=== PATIENT | male | born 1935 | race Caucasian/White ===

== ENCOUNTER 2019-11-11 20:04 | Emergency (ER) | payer SELFPAY ==
--- NOTE | 2019-11-11 20:51 | ER ---
Nurse's Notes [facility] Name: Phuong Menjivar Age: 84 yrs Sex: Male : 1935 Arrival Date: 11/11/2019 Time: 20:14 Bed 4 Private MD: Diagnosis: Unspecified cirrhosis of liver;Ascites;Cellulitis and acute lymphangitis of other parts of limb-right upper ext;Altered mental status, unspecified;Encephalopathy, unspecified;Elevated white blood cell count;Bandemia;Unspecified kidney failure;Pleural effusion in conditions classified elsewhere Presentation: 11/11 20:14 Presenting complaint: EMS states: pt was released from [facility] for RUE aa1 cellulitis today and when he returned to his correction unit he was sluggish to respond and still c/o pain \T\ swelling to R arm. Upon arrival to ED pt oriented x 4. Reports RUE pain 8/10. Pt does report hx of liver failure with cirrhosis and currently taking lactulose. Transition of care: [facility]. Onset of symptoms is unknown. Risk Assessment: Do you want to hurt yourself or someone else? Patient reports no desire to harm self or others. Initial Sepsis Screen: Does the patient meet any 2 criteria? Altered Mental Status. Does the patient have a suspected source of infection? Yes: Skin breakdown/wound. Care prior to arrival: IV initiated. 20 GA, in the left antecubital area, hand, Glucose check: 140 Oxygen administered. via nasal cannula. 20:14 Method Of Arrival: EMS: [facility] aa1 20:14 Acuity: JEN 2 aa1 Historical: - Allergies: 20:26 No Known Allergies; aa1 - Home Meds: 20:26 furosemide 40 mg Oral tab 1 tab once daily [Active]; lactulose 10 gram/15 mL Oral soln aa1 30 mL 3 times per day [Active]; spironolactone 25 mg Oral tab 1 tab once daily [Active]; - PMHx: 20:26 Cirrhosis; Hypertension; BPH; Hypothyroidism; liver disease; aa1 - Immunization history:: Last tetanus immunization: unknown. - Coronavirus screen:: The patient has NOT traveled to [place], [place], or [place] in the past 14 days. Proceed with normal triage process as indicated. - Social history:: Smoking status: Patient denies any tobacco usage or history of. - Family history:: not pertinent. - Ebola Screening: : No symptoms or risks identified at this time. Screenin:15 Abuse screen: Denies threats or abuse. Denies injuries from another. Nutritional aa1 screening: No deficits noted. Tuberculosis screening: No symptoms or risk factors identified. Fall Risk IV access (20 points). Assessment: 20:15 General: Appears in no apparent distress. comfortable, Behavior is calm, cooperative, aa1 appropriate for age. Pain: Complains of pain in right arm Pain currently is 8 out of 10 on a pain scale. Quality of pain is described as tender, throbbing, Is continuous, Aggravated by repositioning. Neuro: Level of Consciousness is awake, obeys commands, Oriented to person, place, time, situation, Moves all extremities. Speech is normal, Pupils are PERRLA. Cardiovascular: Heart tones S1 S2 present. Respiratory: Airway is patent Respiratory effort is even, unlabored, Respiratory pattern is regular, symmetrical. GI: Abdomen is noted to have ascites. : No signs and/or symptoms were reported regarding the genitourinary system. EENT: No signs and/or symptoms were reported regarding the EENT system. Derm: Skin is intact, is healthy with good turgor, Skin is pink, warm \T\ dry. redness noted to R arm. Musculoskeletal: Circulation, motion, and sensation intact. Capillary refill is sluggish, in bilateral fingers. Swelling present in right arm. 21:18 Reassessment: Patient appears in no apparent distress at this time. Patient and/or aa1 family updated on plan of care and expected duration. Pain level reassessed. Patient is alert, oriented x 3, equal unlabored respirations, skin warm/dry/pink. Awaiting test results. 21:26 Reassessment: Patient appears in no apparent distress at this time. Patient and/or aa1 family updated on plan of care and expected duration. Pain level reassessed. Patient is alert, oriented x 3, equal unlabored respirations, skin warm/dry/pink. Pt taken to CT at this time. 21:29 Reassessment: Report for transfer given to Elliot Escobar RN. aa1 21:39 Reassessment: Pedro from transfer center called back stating to [facility] will be aa1 here with security crew at approx 0300 to transport pt to [facility]. 11/12 00:32 Reassessment: Patient appears in no apparent distress at this time. Patient and/or rv family updated on plan of care and expected duration. Pain level reassessed. Patient is alert, oriented x 3, equal unlabored respirations, skin warm/dry/pink. awaiting transportation. Vital Signs: 11/11 20:14 BP 118 / 78; Pulse 66; Resp 18; Temp 97.9; Pulse Ox 100% on R/A; Weight 110.22 kg; aa1 Height 6 ft. 0 in. (182.88 cm); Pain 8/10; 21:00 BP 115 / 68; Pulse 63; Resp 18; Temp 97.7; Pulse Ox 100% on R/A; Pain 8/10; aa1 22:00 BP 130 / 78; Pulse 64; Resp 18; Temp 98.0; Pulse Ox 99% on R/A; aa1 23:00 BP 112 / 72; Pulse 61; Resp 16; Pulse Ox 99% on R/A; rv 23:30 BP 108 / 69; Pulse 61; Resp 16; Pulse Ox 99% on R/A; rv 11/12 00:00 BP 133 / 88; Pulse 59; Resp 17; Pulse Ox 99% on R/A; rv 00:30 BP 127 / 76; Pulse 64; Resp 15; Pulse Ox 98% on R/A; rv 01:00 BP 105 / 67; Pulse 61; Resp 17; Pulse Ox 96% on R/A; rv 01:30 BP 126 / 68; Pulse 65; Resp 16; Pulse Ox 97% on R/A; rv 02:00 BP 116 / 70; Pulse 62; Resp 15; Pulse Ox 97% on R/A; rv 02:30 BP 104 / 71; Pulse 68; Resp 16; Pulse Ox 96% on R/A; rv 03:00 BP 112 / 69; Pulse 68; Resp 15; Pulse Ox 96% on R/A; rv 04:15 BP 109 / 67; Pulse 65; Resp 16; Pulse Ox 96% ; rr5 11/11 20:14 Body Mass Index 32.96 (110.22 kg, 182.88 cm) aa1 ED Course: 11/11 20:14 Patient arrived in ED. bb 20:14 Cherelle Suero RN is Primary Nurse. aa1 20:14 Arm band placed on left wrist. aa1 20:15 Patient has correct armband on for positive identification. Bed in low position. Call aa1 light in reach. Side rails up X2. Correction officers at bedside. cupola hoist operator on. Pulse ox on. NIBP on. Warm blanket given. 20:15 Maintain EMS IV. Dressing intact. Site clean \T\ dry. Gauge \T\ site: 20g L hand. aa 1 20:21 Triage completed. aa1 20:24 Juice Munson MD is Attending Physician. [facility] 22:15 EKG done, by ED staff, reviewed by Juice Munson MD. aa1 22:24 Brenner cath inserted, using sterile technique, 16 Fr., by me, balloon inflated, to aa1 gravity drainage, urine specimen collected. returned ryan urine. Patient tolerated well. 02 00:34 No provider procedures requiring assistance completed. Patient transferred, IV remains rv in place. 01:14 Chest Single View XRAY In Process Unspecified. EDMS 01:29 CT Head Brain wo Cont In Process Unspecified. EDMS 01:30 US Extremity Venous Unilateral Ltd In Process Unspecified. EDMS 01:30 CT Abd/Pelvis - Without Contrast In Process Unspecified. EDMS 03:09 called [phone] [facility] to get ETA on transport for patient they told me 15 mw2 minutes. 03:50 called back to get ETA on transport for patient was told they are 15 minutes away. mw2 Administered Medications: 11/11 21:00 Drug: NS 0.9% 1000 ml Route: IV; Rate: 125 ml/hr; Site: left hand; aa1 11/12 00:33 Follow up: IV Status: Infusion continued upon transfer rv 11/11 21:00 Drug: ProTONIX 40 mg Route: IVP; Site: left hand; aa1 21:59 Follow up: Response: No adverse reaction aa1 21:15 Drug: NS 0.9% 500 ml Route: IV; Rate: bolus; Site: left hand; aa1 22:00 Follow up: IV Status: Completed infusion; IV Intake: 500ml aa1 21:16 Drug: Cefepime 2 grams Route: IVPB; Rate: 200 ml/hr; Infused Over: 30 mins; Site: left aa1 hand; 21:46 Follow up: IV Status: Completed infusion; IV Intake: 100ml aa1 21:16 Drug: Thiamine 100 mg Route: IV; Rate: per protocol; Site: left hand; aa1 21:45 Follow up: IV Status: Completed infusion aa1 21:50 Drug: vancoMYCIN 1 grams Route: IVPB; Infused Over: 2 hrs; Site: left hand; aa1 23:38 Follow up: IV Status: Completed infusion; IV Intake: 250ml aa1 21:57 Drug: NS 0.9% 1000 ml Route: IV; Rate: 1 bolus; Site: left hand; aa11/12 00:32 Follow up: IV Status: Completed infusion; IV Intake: 1000ml rv 11/11 21:57 Drug: NS 0.9% 1000 ml Route: IV; Rate: 1 bolus; Site: left hand; aa1 23:00 Follow up: IV Status: Completed infusion; IV Intake: 1000ml aa1 11/12 03:00 Drug: Lactulose 30 grams {Note: given by tiara ISBELL.} Volume: 45 ml; Route: PO; rr5 04:00 Follow up: Response: No adverse reaction rr5 Intake: 11/11 21:46 IV: 100ml; Total: 100ml. aa1 22:00 IV: 500ml; Total: 600ml. aa1 23:00 IV: 1000ml; Total: 1600ml. aa1 23:38 IV: 250ml; Total: 1850ml. aa11/12 00:32 IV: 1000ml; Total: 2850ml. rv Output: 04:16 Urine: 500ml (Brenner); Total: 500ml. rr5 Outcome: 11/11 20:51 ER care complete, transfer ordered by MD. mae 11/12 04:10 Transferred by ground EMS to [facility], Transfer form rr5 completed. Condition: stable Instructed on the need for transfer. 04:29 Patient left the ED. rr5 Signatures: Dispatcher [employer] EDMS Cherelle Suero RN RN aa1 Juice Munson MD MD cha Ballard, Brenda RN AKILAH Ce Fuller 2 Jose Ramos RN RN rv Roque, Raymond RN RN rr5
--- NOTE | 2019-11-11 20:51 | EDPHYS ---
Physician Documentation [facility] Name: Phuong Menjivar Age: 84 yrs Sex: Male : 1935 Arrival Date: 11/11/2019 Time: 20:14 Bed 4 Private MD: ED Physician Juice Munson HPI: 11/11 20:44 This 84 yrs old Male presents to ER via EMS with complaints of Altered Mental carmelita Status. 20:44 The patient presents with confusion, decreased mental status. Onset: The carmelita symptoms/episode began/occurred 2 day(s) ago. Possible causes: sepsis, cellulitis. Associated signs and symptoms: Pertinent positives: abdominal pain, agitation, confusion, nausea. Current symptoms: In the emergency department the patient's symptoms are unchanged from the initial presentation. Patient's baseline: Neuro: alert and fully oriented. The patient has experienced similar episodes in the past, multiple times. Historical: - Allergies: 20:26 No Known Allergies; aa1 - Home Meds: 20:26 furosemide 40 mg Oral tab 1 tab once daily [Active]; lactulose 10 gram/15 mL Oral soln aa1 30 mL 3 times per day [Active]; spironolactone 25 mg Oral tab 1 tab once daily [Active]; - PMHx: 20:26 Cirrhosis; Hypertension; BPH; Hypothyroidism; liver disease; aa1 - Immunization history:: Last tetanus immunization: unknown. - Coronavirus screen:: The patient has NOT traveled to [place], [place], or [place] in the past 14 days. Proceed with normal triage process as indicated. - Social history:: Smoking status: Patient denies any tobacco usage or history of. - Family history:: not pertinent. - Ebola Screening: : No symptoms or risks identified at this time. ROS: 20:44 Constitutional: Negative for fever, chills, and weight loss, Eyes: Negative for injury, carmelita pain, redness, and discharge, ENT: Negative for injury, pain, and discharge, Neck: Negative for injury, pain, and swelling, Cardiovascular: Negative for chest pain, palpitations, and edema, Respiratory: Negative for shortness of breath, cough, wheezing, and pleuritic chest pain, Back: Negative for injury and pain, : Negative for injury, bleeding, discharge, and swelling, Psych: Negative for depression, anxiety, suicide ideation, homicidal ideation, and hallucinations, Allergy/Immunology: Negative for hives, rash, and allergies, Endocrine: Negative for neck swelling, polydipsia, polyuria, polyphagia, and marked weight changes, Hematologic/Lymphatic: Negative for swollen nodes, abnormal bleeding, and unusual bruising. 20:44 Abdomen/GI: Positive for abdominal pain, abdominal cramps, abdominal distension, of the right upper quadrant, left upper quadrant, right lower quadrant and left lower quadrant. 20:44 MS/extremity: Positive for decreased range of motion, pain, swelling, tenderness, of the right arm. Exam: 20:44 Constitutional: This is a well developed, well nourished patient who is awake, alert, carmelita and in no acute distress. Head/Face: Normocephalic, atraumatic. Eyes: Pupils equal round and reactive to light, extra-ocular motions intact. Lids and lashes normal. Conjunctiva and sclera are non-icteric and not injected. Cornea within normal limits. Periorbital areas with no swelling, redness, or edema. ENT: Nares patent. No nasal discharge, no septal abnormalities noted. Tympanic membranes are normal and external auditory canals are clear. Oropharynx with no redness, swelling, or masses, exudates, or evidence of obstruction, uvula midline. Mucous membranes moist. Neck: Trachea midline, no thyromegaly or masses palpated, and no cervical lymphadenopathy. Supple, full range of motion without nuchal rigidity, or vertebral point tenderness. No Meningismus. Chest/axilla: Normal chest wall appearance and motion. Nontender with no deformity. No lesions are appreciated. Cardiovascular: Regular rate and rhythm with a normal S1 and S2. No gallops, murmurs, or rubs. Normal PMI, no JVD. No pulse deficits. Respiratory: Lungs have equal breath sounds bilaterally, clear to auscultation and percussion. No rales, rhonchi or wheezes noted. No increased work of breathing, no retractions or nasal flaring. Back: No spinal tenderness. No costovertebral tenderness. Full range of motion. Male : Normal genitalia with no discharge or lesions. MS/ Extremity: Pulses equal, no cyanosis. Neurovascular intact. Full, normal range of motion. Psych: Awake, alert, with orientation to person, place and time. Behavior, mood, and affect are within normal limits. 20:44 Abdomen/GI: Inspection: distension, Bowel sounds: normal, Palpation: mild abdominal tenderness, in all quadrants, Liver: is firm, Hernia: not appreciated. 21:28 Neck: ROM/movement: is normal, no acute changes, Meningeal signs: are not present, carmelita Kernig's sign is negative, Brudzinski's sign is negative. Vital Signs: 20:14 BP 118 / 78; Pulse 66; Resp 18; Temp 97.9; Pulse Ox 100% on R/A; Weight 110.22 kg; aa1 Height 6 ft. 0 in. (182.88 cm); Pain 8/10; 21:00 BP 115 / 68; Pulse 63; Resp 18; Temp 97.7; Pulse Ox 100% on R/A; Pain 8/10; aa1 22:00 BP 130 / 78; Pulse 64; Resp 18; Temp 98.0; Pulse Ox 99% on R/A; aa1 23:00 BP 112 / 72; Pulse 61; Resp 16; Pulse Ox 99% on R/A; rv 23:30 BP 108 / 69; Pulse 61; Resp 16; Pulse Ox 99% on R/A; rv 02/07 00:00 BP 133 / 88; Pulse 59; Resp 17; Pulse Ox 99% on R/A; rv 00:30 BP 127 / 76; Pulse 64; Resp 15; Pulse Ox 98% on R/A; rv 01:00 BP 105 / 67; Pulse 61; Resp 17; Pulse Ox 96% on R/A; rv 01:30 BP 126 / 68; Pulse 65; Resp 16; Pulse Ox 97% on R/A; rv 02:00 BP 116 / 70; Pulse 62; Resp 15; Pulse Ox 97% on R/A; rv 02:30 BP 104 / 71; Pulse 68; Resp 16; Pulse Ox 96% on R/A; rv 03:00 BP 112 / 69; Pulse 68; Resp 15; Pulse Ox 96% on R/A; rv 04:15 BP 109 / 67; Pulse 65; Resp 16; Pulse Ox 96% ; rr5 02/ 20:14 Body Mass Index 32.96 (110.22 kg, 182.88 cm) aa1 Procedures: 11/11 22:09 Peripheral line: by aseptic technique a peripheral line was placed in the left external carmelita jugular vein. MDM: 20:24 Patient medically screened. [facility] 20:44 Data reviewed: vital signs, nurses notes, lab test result(s), EKG, radiologic studies, [facility] CT scan, doppler, plain films. 11/11 20:17 Order name: Amylase, Serum rv 11/11 20:17 Order name: Basic Metabolic Panel rv 11/11 20:17 Order name: Blood Culture Adult (2) rv 11/11 20:17 Order name: CBC with Diff rv 11/11 20:17 Order name: Ckmb rv 11/11 20:17 Order name: CPK rv 11/11 20:17 Order name: Lactate rv 11/11 20:17 Order name: LFT's rv 11/11 20:17 Order name: Lipase rv 11/11 20:17 Order name: Procalcitonin rv 11/11 20:17 Order name: Protime (+inr) rv 11/11 20:17 Order name: Ptt, Activated rv 11/11 20:17 Order name: Troponin (emerg Dept Use Only) 11/11 20:17 Order name: AMMONIA 11/11 20:43 Order name: Magnesium [facility] 11/11 20:43 Order name: NT PRO-BNP [facility] 11/11 20:57 Order name: CBC with Automated Diff; Complete Time: 21:28 EDMS 11/11 21:01 Order name: Protime (+INR); Complete Time: 21:07 EDMS 11/11 21:01 Order name: PTT, Activated Partial Thromb; Complete Time: 21:07 EDMS 11/11 21:03 Order name: Ammonia; Complete Time: 21:07 EDMS 11/11 21:12 Order name: Lactate; Complete Time: 21:28 EDMS 11/11 21:18 Order name: Manual Differential; Complete Time: 21:28 EDMS 11/11 21:18 Order name: NT PRO-BNP; Complete Time: 21:28 EDMS 11/11 21:18 Order name: Magnesium; Complete Time: 21:28 EDMS 11/11 21:53 Order name: Procalcitonin; Complete Time: 22:15 EDMS 11/11 22:14 Order name: Basic Metabolic Panel; Complete Time: 22:15 EDMS 11/11 22:14 Order name: Liver (Hepatic) Function; Complete Time: 22:15 EDMS 11/11 22:14 Order name: Creatine Phosphokinase; Complete Time: 22:15 EDMS 11/11 22:14 Order name: CKMB Creatine Kinase MB; Complete Time: 22:15 EDMS 11/11 20:17 Order name: Chest Single View XRAY 11/11 20:17 Order name: Accucheck; Complete Time: 21:23 11/11 20:17 Order name: Cardiac monitoring; Complete Time: 20:17 11/11 20:17 Order name: EKG - Nurse/Tech; Complete Time: 21:53 11/11 20:17 Order name: IV Saline Lock - Large Bore; Complete Time: 20:17 11/11 20:17 Order name: Labs collected and sent; Complete Time: 20:49 11/11 20:17 Order name: O2 Per Protocol; Complete Time: 20:17 11/11 20:17 Order name: O2 Sat Monitoring; Complete Time: 20:17 11/11 20:43 Order name: EKG; Complete Time: 20:44 [facility] 11/11 20:43 Order name: IV Saline Lock; Complete Time: 20:48 [facility] 11/11 20:43 Order name: CT Head Brain wo Cont [facility] 11/11 20:43 Order name: US Extremity Venous Unilateral Ltd [facility] 11/11 20:52 Order name: CT Abd/Pelvis - Without Contrast [facility] 11/11 21:46 Order name: Brenner; Complete Time: 22:25 [facility] 11/11 22:14 Order name: Troponin (Emerg Dept Use Only); Complete Time: 22:15 EDMD 11/11 22:14 Order name: Amylase Level; Complete Time: 22:15 EDMD 11/11 22:14 Order name: Lipase; Complete Time: 22:15 EDMS Administered Medications: 21:00 Drug: NS 0.9% 1000 ml Route: IV; Rate: 125 ml/hr; Site: left hand; aa1 11/12 00:33 Follow up: IV Status: Infusion continued upon transfer rv 11/11 21:00 Drug: ProTONIX 40 mg Route: IVP; Site: left hand; aa1 21:59 Follow up: Response: No adverse reaction aa1 21:15 Drug: NS 0.9% 500 ml Route: IV; Rate: bolus; Site: left hand; aa1 22:00 Follow up: IV Status: Completed infusion; IV Intake: 500ml aa1 21:16 Drug: Cefepime 2 grams Route: IVPB; Rate: 200 ml/hr; Infused Over: 30 mins; Site: left aa hand; 21:46 Follow up: IV Status: Completed infusion; IV Intake: 100ml [facility] 21:16 Drug: Thiamine 100 mg Route: IV; Rate: per protocol; Site: left hand; [facility] 21:45 Follow up: IV Status: Completed infusion [facility] 21:50 Drug: vancoMYCIN 1 grams Route: IVPB; Infused Over: 2 hrs; Site: left hand; [facility] 23:38 Follow up: IV Status: Completed infusion; IV Intake: 250ml [facility] 21:57 Drug: NS 0.9% 1000 ml Route: IV; Rate: 1 bolus; Site: left hand; [facility] 11/12 00:32 Follow up: IV Status: Completed infusion; IV Intake: 1000ml 11/11 21:57 Drug: NS 0.9% 1000 ml Route: IV; Rate: 1 bolus; Site: left hand; [facility] 23:00 Follow up: IV Status: Completed infusion; IV Intake: 1000ml [facility] 11/12 03:00 Drug: Lactulose 30 grams {Note: given by tiara ISBELL.} Volume: 45 ml; Route: PO; rr5 04:00 Follow up: Response: No adverse reaction rr5 Disposition: 11/11/19 20:51 Transfer ordered to [facility]. Diagnosis are Unspecified cirrhosis of liver, Ascites, Cellulitis and acute lymphangitis of other parts of limb - right upper ext, Altered mental status, unspecified, Encephalopathy, unspecified, Elevated white blood cell count, Bandemia, Unspecified kidney failure, Pleural effusion in conditions classified elsewhere. - Reason for transfer: Higher level of care. - [facility]. - Condition is Serious. - Problem is new. - Symptoms are unchanged. Signatures: Dispatcher [employer] EDCherelle Dumont RN RN aa1 Juice Munson MD MD cha Vicente, Ronaldo, RN RN rv Roque, Raymond, RN RN rr5 Corrections: (The following items were deleted from the chart) 11/11 21:29 20:51 11/11/2019 20:51 Transfer ordered to [facility]. Diagnosis is Unspecified carmelita cirrhosis of liver; Ascites; Cellulitis and acute lymphangitis of other parts of limb - right upper ext; Altered mental status, unspecified; Encephalopathy, unspecified. Reason for transfer: Higher level of care. [facility]. Condition is Serious. Problem is new. Symptoms are unchanged. [facility] 21:47 21:29 11/11/2019 20:51 Transfer ordered to [facility]. Diagnosis is Unspecified carmelita cirrhosis of liver; Ascites; Cellulitis and acute lymphangitis of other parts of limb - right upper ext; Altered mental status, unspecified; Encephalopathy, unspecified; Elevated white blood cell count. Reason for transfer: Higher level of care. [facility]. Condition is Serious. Problem is new. Symptoms are unchanged. [facility] :16 21:47 11/11/2019 20:51 Transfer ordered to [facility]. Diagnosis is Unspecified carmelita cirrhosis of liver; Ascites; Cellulitis and acute lymphangitis of other parts of limb - right upper ext; Altered mental status, unspecified; Encephalopathy, unspecified; Elevated white blood cell count; Bandemia. Reason for transfer: Higher level of care. [facility]. Condition is Serious. Problem is new. Symptoms are unchanged. [facility] :38 22:16 11/11/2019 20:51 Transfer ordered to [facility]. Diagnosis is Unspecified carmelita cirrhosis of liver; Ascites; Cellulitis and acute lymphangitis of other parts of limb - right upper ext; Altered mental status, unspecified; Encephalopathy, unspecified; Elevated white blood cell count; Bandemia; Unspecified kidney failure. Reason for transfer: Higher level of care. [facility]. Condition is Serious. Problem is new. Symptoms are unchanged. [facility] 11/12 04:29 11/11 22:38 11/11/2019 20:51 Transfer ordered to [facility]. Diagnosis is Unspecified rr5 cirrhosis of liver; Ascites; Cellulitis and acute lymphangitis of other parts of limb - right upper ext; Altered mental status, unspecified; Encephalopathy, unspecified; Elevated white blood cell count; Bandemia; Unspecified kidney failure; Pleural effusion in conditions classified elsewhere. Reason for transfer: Higher level of care. [facility]. Condition is Serious. Problem is new. Symptoms are unchanged. [facility]
[2019-11-11 20:52] LABS: Absolute Lymphocytes (CBC) 0.9 K/uL (0.7-4.9); Hematocrit 39.5 % (39.6-49.0); Lymphocytes % 6.3 % (15.3-44.8); MPV 7.4 fL (7.6-11.3); RBC Red Blood Cell Count 4.38 M/uL (4.33-5.43)
[2019-11-11 20:59] LABS: Protime INR 1.46
[2019-11-11] MEDS ORDERED: THIAMINE 200 MG/2 ML INJ ONE (20:59)
[2019-11-11] MEDS ORDERED: CEFEPIME 2 GM VIAL ONE (20:59)
[2019-11-11] MEDS ORDERED: NA CHLORIDE 0.9% 250 ML ONE (21:00)
[2019-11-11] MEDS ORDERED: PANTOPRAZOLE 40 MG INJ ONE (21:00)
[2019-11-11] MEDS ORDERED: NA CHLORIDE 0.9% 500 ML ONE (21:00)
[2019-11-11] MEDS ORDERED: NA CHLORIDE 0.9% 100 ML IV ONE (21:00)
[2019-11-11] MEDS ORDERED: VANCOMYCIN 1 GM/VIAL ONE (21:00)
[2019-11-11] MEDS ORDERED: NA CHLORIDE 0.9% 1,000 ML ONE (21:00)
[2019-11-11 21:17] LABS: Blood Morphology Comment NOTED (NOT SEEN); Hypochromasia 1+; Platelet Estimate ADEQ; Target Cells 1+
[2019-11-11 21:18] LABS: Magnesium 2.2 mg/dL (1.8-2.4)
[2019-11-11] MEDS ORDERED: NA CHLORIDE 0.9% 2,000 ML ONE (21:50)
[2019-11-11] MEDS ORDERED: LACTULOSE 20 GM/30 ML UCUP ONE (21:50)
[2019-11-11 22:12] LABS: Albumin 1.9 g/dL (3.4-5.0); Bilirubin Direct 1.6 mg/dL (0-0.2); Bilirubin Total 3.2 mg/dL (0.2-1.0); CKMB Creatine Kinase MB 1.8 ng/mL (0.3-3.6); Potassium 4.3 mmol/L (3.5-5.1); Troponin (Emerg Dept Use Only) 0.37 ng/mL (0.0-0.045)
[2019-11-12 04:43] VITALS: TEMP 98
[2019-11-12 04:53] VITALS: O2SAT 96
[2019-11-12 04:55] VITALS: BP 109/67
--- NOTE | 2019-11-12 08:45 | EKG ---
Test Date: 2019-11-11 Test Time: 22:10:32 Teletypewriter Installer: LETICIA MEASUREMENT RESULTS: Intervals: Rate: 64 IN: 138 QRSD: 100 QT: 470 QTc: 484 [place]: P: -15 IN: 138 QRS: 45 T: 63 INTERPRETIVE STATEMENTS: Normal sinus rhythm Normal ECG No previous ECG available for comparison Electronically Signed On 11-12-19 08:44:15 RN EMERGENCY by Ke Chiang
--- NOTE | 2019-11-12 09:38 | RAD REPORT ---
EXAM DESCRIPTION: RAD - Chest Single View - 11/11/2019 8:55 pm CLINICAL HISTORY: MALAISE, chest pain COMPARISON: No comparisons TECHNIQUE: AP portable chest image was obtained 11/11/2019 8:55 pm . FINDINGS: Lungs are clear. Heart size is normal. Pulmonary vasculature within normal limits. Aorta i s tortuous accentuating the mediastinum. Mediastinal mass is unlikely but not entirely excluded. No m easurable pleural effusion and no pneumothorax. No acute bony abnormality seen. No acute aortic findi ngs suspected. IMPRESSION: Shallow inspiration exam without acute cardiopulmonary finding. Widening of the mediastinum is believed to be tortuous aorta rather than mass.
--- NOTE | 2019-11-12 09:46 | RAD REPORT ---
EXAM DESCRIPTION: US - Extremity Venous Uni Ltd - 11/11/2019 9:25 pm CLINICAL HISTORY: Right arm pain and swelling COMPARISON: None. TECHNIQUE: Real-time sonographic evaluation of the right upper extremity deep venous systems was per formed. FINDINGS: Normal compressibility, flow augmentation, phasic flow and spontaneous flow are identified in the right upper extremity deep venous system. No intraluminal filling defects seen. Internal jugu lar and subclavian veins are normal as well. Axilla assessment is limited on this examination. Due to patient restraints, the axilla could not be optimally accessed. IMPRESSION: No DVT in the right upper extremity.
--- NOTE | 2019-11-12 13:09 | RAD REPORT ---
EXAM DESCRIPTION: CT - Head Brain Wo Cont - 11/12/2019 2:40 am CLINICAL HISTORY: CONFUSED COMPARISON: None available TECHNIQUE: Axial CT of the head obtained from the skull apex to the skull base without contrast. FINDINGS: No acute intracranial hemorrhage identified. No mass, mass effect, shift of the midline, a bnormal extra-axial fluid collection or CT evidence of acute ischemic change identified. The ventricu lar system and sulcal spaces are mildly enlarged compatible with mild cerebral atrophy. Scattered a reas of hypodensity throughout the supratentorial white matter are nonspecific and may be related to chronic small vessel ischemic change. The visualized paranasal sinuses and the mastoids are clear. No skull fracture identified. Visual ized orbits and globes are unremarkable. Atherosclerotic calcification of the intracranial internal c arotid arteries. IMPRESSION: 1. No acute intracranial abnormality by CT criteria. This exam was performed according to our departmental dose-optimization program, which includes autom ated exposure control, adjustment of the mA and/or kV according to patient size and/or use of iterati ve reconstruction technique. Electronically signed by: Jose Guadalupe Gordillo 11/11/2019 10:07 PM COMPUTER SYSTEMS SECURITY ANALYST Due to temporary technical issues with the PACS/Fluency reporting system, reports are being signed by the in house radiologist as a courtesy to ensure prompt reporting. The interpreting radiologist is f ully responsible for the content of the report.
--- NOTE | 2019-11-12 13:12 | RAD REPORT ---
EXAM DESCRIPTION: CT - Abdomen Pelvis Wo Contrast - 11/12/2019 2:39 am CLINICAL HISTORY: ABD PAIN COMPARISON: None Available. TECHNIQUE: CT of the abdomen and pelvis without IV contrast. Evaluation of the solid organs and vasc ulature is suboptimal due to lack of IV contrast. FINDINGS: Lung Bases: Small bilateral pleural effusions. Bones: Degenerative change of the spine. Abdomen: Liver: Nodular contour of the liver. Gallbladder: No calcified gallstones. Spleen, Pancreas, and Adrenal Glands: The spleen, pancreas, and adrenal glands are unremarkable. Kidneys: The kidneys have normal size without evidence of hydronephrosis. No obstructing ureteral kirti culi. No obstructing left nephrolithiasis. Likely inferior pole left renal cyst. Vasculature: Aortoiliac atherosclerosis. IVC is unremarkable. Stomach: The stomach and duodenum have normal course. Other: No free intraperitoneal air. Tiny fluid containing umbilical hernia. Large volume ascites. Pelvis: Bladder: Urinary bladder is unremarkable. Bowel: No dilated loops of large or small bowel. Appendix: Normal appendix. Pelvis: Enlarged prostate. IMPRESSION: 1. Large volume ascites. 2. Findings compatible with cirrhosis. 3. Enlarged prostate. 4. Nonobstructing left nephrolithiasis. 5. Small bilateral pleural effusions. This exam was performed according to our departmental dose-optimization program, which includes autom ated exposure control, adjustment of the mA and/or kV according to patient size and/or use of iterati ve reconstruction technique. Electronically signed by: Jose Guadalupe Gordillo 11/11/2019 10:15 PM FELLER OPERATOR Due to temporary technical issues with the PACS/Fluency reporting system, reports are being signed by the in house radiologist as a courtesy to ensure prompt reporting. The interpreting radiologist is f yingly responsible for the content of the report.
== END 2019-11-12 04:29 | disposition short-term general hospital (02) ==
LOC: ER 20:04
PROC: 05HQ33Z Insertion of Infusion Device into Left External Jugular Vein, Percutaneous Approach (ICD-10-PCS; principal; 2019-11-12)
DX: G93.40 Encephalopathy, unspecified (principal); K74.60 Unspecified cirrhosis of liver; R18.8 Other ascites; D72.825 Bandemia; N19 Unspecified kidney failure; J90 Pleural effusion, not elsewhere classified; L03.113 Cellulitis of right upper limb; L03.898 Acute lymphangitis of other sites; I10 Essential (primary) hypertension; E03.9 Hypothyroidism, unspecified
CPT/HCPCS: 36415; 51702; 70450; 71045; 74176; 80048; 80076; 82140; 82150; 82550; 82553; 83605; 83690; 83735; 83880; 84145; 84484; 85025; 85610; 85730; 87040; 93005; 93971; 96361; 96365; 96367; 96368; 96375; 99285; C9113; J0692; J3411; J7030; J7040